=== PATIENT | female | born 1970 | race Caucasian/White ===

== ENCOUNTER → 2017-01-08 | Outpatient (CLI) | payer BC ==
--- NOTE | 2017-01-09 09:47 | Diagnostic Imaging Report ---
Bilateral screening mammogram 2D views with tomosynthesis The current study was also evaluated with a Computer Aided Detection (CAD) system. Indication: Screening. No current complaints stated on the questionnaire. COMPARISON: 10/29/2011. FINDINGS: The breasts are composed of heterogeneously dense parenchyma which may decrease mammographic sensitivity. There is an asymmetry along the medial aspect of the left breast. This appears to be related to fibroglandular tissues based on tomographic evaluation. This is the however new when compared to 2012 exam. The right breast demonstrate no definite change. IMPRESSION: Focal compression views and ultrasound evaluation for medial left breast asymmetry is recommended. BI-RADS 0. ACR BI-RADS Category 0: Incomplete. (Needs additional imaging evaluation). Result letter will be mailed to the patient. Note: At least 10% of breast cancer is not imaged by mammography. Dictated by: Dictated on workstation # [id number]
== END ==
LOC: RAD 13:05
PROVIDERS: ATTEND Family Medicine
DX: Z12.31 Encounter for screening mammogram for malignant neoplasm of breast (principal); N64.89 Other specified disorders of breast
CPT/HCPCS: 77067

== ENCOUNTER → 2017-08-19 | Outpatient (CLI) | payer BC ==
--- NOTE | 2017-08-19 14:40 | Diagnostic Imaging Report ---
INDICATION: Left breast density. Study is performed for six-month followup. The current study was also evaluated with a Computer Aided Detection (CAD) system. Correlation is made with prior mammogram from 01/08/2017 and 01/26/2017. 2-D and 3-D unilateral left diagnostic mammography was performed including CC, ML and mediolateral views. The previously noted elongated density along the medial aspect of the posterior left breast is barely visible on today's study and is consistent with fibroglandular tissue. No mass is identified. There are benign calcifications on the left. No malignant appearing microcalcifications are seen. Left axilla is unremarkable. IMPRESSION: BI-RADS category 2 Followup mammogram shows no suspicious abnormality. The previously noted density in the medial left breast is barely visible on today's study consistent with benign etiology. Patient should return in 6 months for bilateral screening mammography. ACR BI-RADS Category 2: Benign findings. Result letter will be mailed to the patient. Note: At least 10% of breast cancer is not imaged by mammography. Dictated by: Dictated on workstation # [id number]
== END ==
LOC: RAD 13:42
PROVIDERS: ATTEND Family Medicine
DX: R92.2 Inconclusive mammogram (principal)

== ENCOUNTER 2018-08-25 16:54 | Emergency (ER) | payer BC ==
[~2018-08-25] VITALS: Ht 165.1 cm; Wt 104.8 kg
[2018-08-25] MEDS ORDERED: LEVO75TA6 (17:12)
[2018-08-25] MEDS ORDERED: ASPIRIN 81 MG CHEW (CHILDREN'S ASA) PO ONE (17:15)
[2018-08-25 17:16] LABS: BASOPHILS # (AUTO) 0.1 10^3/uL (0.0-0.1); BASOPHILS % (AUTO) 1 % (0-10); EOSINOPHILS # (AUTO) 0.2 10^3/uL (0.0-0.3); EOSINOPHILS % (AUTO) 2 % (0-10); HEMATOCRIT 47 % (35-52); HEMOGLOBIN 14.9 G/DL (11.5-16.0); LYMPHOCYTES # (AUTO) 3.6 X 10^3 (1.0-4.0); LYMPHOCYTES % (AUTO) 33 % (12-44); MEAN CORPUSCULAR HEMOGLOBIN 31 PG (25-34); MEAN CORPUSCULAR HGB CONC 32 G/DL (32-36); MEAN CORPUSCULAR VOLUME 96 FL (80-99); MEAN PLATELET VOLUME 10.1 FL (7.4-10.4); MONOCYTES # (AUTO) 1.2 X 10^3 (0.0-1.0); MONOCYTES % (AUTO) 11 % (0-12); NEUTROPHILS # (AUTO) 5.8 X 10^3 (1.8-7.8); NEUTROPHILS % (AUTO) 54 % (42-75); PLATELET COUNT 295 10^3/uL (130-400); RED CELL DISTRIBUTION WIDTH 14.5 % (10.0-14.5); WHITE BLOOD COUNT 10.8 10^3/uL (4.3-11.0)
--- NOTE | 2018-08-25 17:19 | ED Chest Pain ---
General Chief Complaint: Chest Pain Stated Complaint: HYPERTENSION,CHEST PAIN Nursing Triage Note: AMB TO ROOM REPORTS SINCE AT 9AM TODAY HAD ONSET OF CHEST PAIN WHILE AT WORK DESCRIBES PAIN PRESSURE. Nursing Sepsis Screen: No Definite Risk Source: patient Exam Limitations: no limitations History of Present Illness Date Seen by Provider: Aug 25, 2018 Time Seen by Provider: 16:55 Initial Comments Patient presents to ER by private conveyance with chief complaint that she started having some chest pressure on the left side of her chest nonradiating about a 2 out of 10 starting at 845 this morning. She was at work at the [employer] and continue to work through it. It was not worse with exertion. She does not have a history of coronary artery disease, clots DVTs or familial history. She does not have GERD or indigestion. Nor does she have significant anxiety. She does not have a history of COPD or asthma. She does smoke about a half pack cigarettes she started again 3 months ago but she was off for 2 years prior to that. She does not have a history of high blood pressure high cholesterol but she does take medicines for hypothyroidism. She occasionally drinks alcohol and denies recreational drug use. She has not had any swelling in her hands or feet shortness of breath or cough. No fevers chills nausea vomiting or diarrhea. She feels plus in her face sometimes and has had sweats. She had her last period in February 2018 but before that she was very regular. She is on Black cohosh for the last couple weeks. Allergies and Home Medications Allergies Coded Allergies: No Known Drug Allergies (Unverified , 03/28/13) Patient Home Medication List Home Medication List Reviewed: Yes Review of Systems Review of Systems Constitutional: No chills, No diaphoresis EENTM: No Blurred Vision, No Double Vision Respiratory: Denies Cough, Denies Orthopnea Cardiovascular: Denies Chest Pain, Denies Edema Gastrointestinal: Denies Constipated, Denies Diarrhea, Denies Nausea Genitourinary: Denies Burning, Denies Discharge, Denies Drainage Past Ionnwjz-Ffusxd-Ojmgmb Hx Patient Social History Alcohol Use: Occasionally Uses Recreational Drug Use: No Smoking Status: Current Everyday Smoker Recent Foreign Travel: No Contact w/Someone Who Travel: No Recent Infectious Disease Expo: No Past Medical History Surgeries: No Respiratory: No Cardiac: No Neurological: No Reproductive Disorders: No Sexually Transmitted Disease: No Gastrointestinal: No Musculoskeletal: No Endocrine: No Cancer: No Psychosocial: No Integumentary: No Blood Disorders: No Physical Exam Vital Signs Vital Signs - First Documented 08/25/18 16:54 Temp 98.0 Pulse 82 Resp 18 B/P (MAP) 137/74 (95) Pulse Ox 97 Capillary Refill : Less Than 3 Seconds Height, Weight, BMI Height: 5'5.00" Weight: 231lbs. oz. 104.822528ey; BMI Method:Stated General Appearance: No Apparent Distress, WD/WN HEENT: PERRL/EOMI, Normal ENT Inspection, Pharynx Normal, Moist Mucous Membranes Neck: Full Range of Motion, Normal Inspection Respiratory: Chest Non Tender, Lungs Clear, Normal Breath Sounds, No Accessory Muscle Use, No Respiratory Distress Cardiovascular: Regular Rate, Rhythm, No Edema, Normal Peripheral Pulses Gastrointestinal: Normal Bowel Sounds, No Organomegaly, Non Tender, Soft Progress/Results/Core Measures Results/Orders Lab Results Laboratory Tests Test 08/25/18 16:58 Range/Units White Blood Count 10.8 4.3-11.0 10^3/uL Red Blood Count 4.85 4.35-5.85 10^6/uL Hemoglobin 14.9 11.5-16.0 G/DL Hematocrit 47 35-52 % Mean Corpuscular Volume 96 80-99 FL Mean Corpuscular Hemoglobin 31 25-34 PG Mean Corpuscular Hemoglobin Concent 32 32-36 G/DL Red Cell Distribution Width 14.5 10.0-14.5 % Platelet Count 295 130-400 10^3/uL Mean Platelet Volume 10.1 7.4-10.4 FL Neutrophils (%) (Auto) 54 42-75 % Lymphocytes (%) (Auto) 33 12-44 % Monocytes (%) (Auto) 11 0-12 % Eosinophils (%) (Auto) 2 0-10 % Basophils (%) (Auto) 1 0-10 % Neutrophils # (Auto) 5.8 1.8-7.8 X 10^3 Lymphocytes # (Auto) 3.6 1.0-4.0 X 10^3 Monocytes # (Auto) 1.2 H 0.0-1.0 X 10^3 Eosinophils # (Auto) 0.2 0.0-0.3 10^3/uL Basophils # (Auto) 0.1 0.0-0.1 10^3/uL Prothrombin Time 13.2 12.2-14.7 SEC INR Comment 1.0 0.8-1.4 Activated Partial Thromboplast Time 34 24-35 SEC Sodium Level 137 135-145 MMOL/L Potassium Level 3.8 3.6-5.0 MMOL/L Chloride Level 103 98-107 MMOL/L Carbon Dioxide Level 26 21-32 MMOL/L Anion Gap 8 5-14 MMOL/L Blood Urea Nitrogen 14 7-18 MG/DL Creatinine 0.84 0.60-1.30 MG/DL Estimat Glomerular Filtration Rate > 60 BUN/Creatinine Ratio 17 Glucose Level 97 70-105 MG/DL Calcium Level 9.8 8.5-10.1 MG/DL Corrected Calcium 8.5-10.1 MG/DL Magnesium Level 2.0 1.8-2.4 MG/DL Total Bilirubin 0.3 0.1-1.0 MG/DL Aspartate Amino Transf (AST/SGOT) 28 5-34 U/L Alanine Aminotransferase (ALT/SGPT) 31 0-55 U/L Alkaline Phosphatase 109 40-136 U/L Myoglobin 34.9 10.0-92.0 NG/ML Troponin I < 0.028 <0.028 NG/ML B-Type Natriuretic Peptide < 10.0 <100.0 PG/ML Total Protein 8.1 6.4-8.2 GM/DL Albumin 4.6 H 3.2-4.5 GM/DL Lipase 66 8-78 U/L My Orders Orders - SHONNA,MIGUEL J Ekg Tracing (08/25/18 16:56) Continuous Ekg Monitoring (08/25/18 16:56) Cbc With Automated Diff (08/25/18 17:08) Magnesium (08/25/18 17:08) Chest 1 View, Ap/Pa Only (08/25/18 17:08) Cardiac Profile 1 (08/25/18 17:08) Comprehensive Metabolic Panel (08/25/18 17:08) Myoglobin Serum (08/25/18 17:08) Protime With Inr (08/25/18 17:08) Partial Thromboplastin Time (08/25/18 17:08) O2 (08/25/18 17:08) Lipid Panel (08/26/18 06:00) Ed Iv/Invasive Line Start (08/25/18 17:08) Lipase (08/25/18 17:08) BNP (08/25/18 17:08) Aspirin Chewable Tablet (Baby Aspirin Ch (08/25/18 17:15) Medications Given in ED Current Medications Medications Dose Ordered Sig/Linnea Route Start Time Stop Time Status Last Admin Dose Admin Aspirin 324 mg ONCE ONCE PO 08/25/18 17:15 08/25/18 17:16 DC 08/25/18 17:15 324 MG Vital Signs/I&O 08/25/18 16:54 Temp 98.0 Pulse 82 Resp 18 B/P (MAP) 137/74 (95) Pulse Ox 97 Blood Pressure Mean: 95 Progress Progress Note : Time: 17:15 Progress Note Patient does not have a lot of risk factors for coronary disease. She has no risk factors for pulmonary embolism and her Wells pulmonary embolism score is low. We'll give her some aspirin but as the conversation ended she was without pressure or pain in her chest so no nitroglycerin at this time. Her blood pressures in the 130s when she presents. GI, anxiety? Pain started over 8 hours ago so single troponin should be positive by now. ED ACS score 7. Low risk by the EDACS Score. If the patient also has: (1) EKG without new ischemic changes and (2) negative initial and 2-hour troponins, then this patient is safe for discharge to early outpatient follow-up investigation (or proceed to earlier inpatient testing). If EKG with ischemic changes or positive troponin, they are not low risk and require normal risk stratification. Initial ECG Impression Date: Aug 25, 2018 Initial ECG Impression Time: 17:02 Initial ECG Rate: 75 Initial ECG Rhythm: Normal Sinus Initial ECG Intervals: Normal Initial ECG Impression: Normal Initial ECG Comparisson: No Previous ECG Available Comment No clinical significant ST elevation or depression. Diagnostic Imaging Diagonstic Imaging: Xray Plain Films/CT/US/NM/MRI: chest (1v) Comments NAME: DELMI JUDGE [employer] REC#: [id number] PHYSICIAN: MIGUEL KILPATRICK MD CC: WANG PERERA MD; MIGUEL KILPATRICK Page 1 of 1 RADIOLOGY REPORT [facility], [facility]. [place], [place] CC: WANG PERERA MD; MIGUEL KILPATRICK Page 1 of 1 RADIOLOGY REPORT NAME: DELMI JUDGE [employer] REC#: [id number] PT STATUS: REG ER : 1970 PHYSICIAN: MIGUEL KILPATRICK MD ADMIT DATE: 08/25/18/ER Signed Date of Exam: 08/25/18 CHEST 1 VIEW, AP/PA ONLY FINDINGS: The heart size, mediastinal configuration, and pulmonary vascularity are within normal limits. There is no pleural effusion, pneumothorax, or pneumonia. The osseous structures are unremarkable. IMPRESSION: No acute cardiopulmonary abnormality. Dictated by: Dictated on workstation # [id number] Dict: 08/25/18 173 Trans: 08/25/181743 Interpreted by: WANG PERERA MD Electronically signed by: WANG PERERA MD 08/25/181743 Reviewed: Reviewed by Me Departure Impression Primary Impression: Chest pain Qualified Codes: R07.9 - Chest pain, unspecified Disposition: 01 HOME, SELF-CARE Condition: Stable Departure-Patient Inst. Decision time for Depature: 18:02 Referrals: ABIDA TURK MD (PCP/Family) Primary Care Physician ANGELIA AMBRIZ MD Patient Instructions: Chest Pain That Is Not Caused by the Heart (DC) Add. Discharge Instructions: Follow-up with cardiology Dr. Ambriz by calling for an appointment tomorrow morning. If you have significant chest pain especially if it's worse with exercise or shortness of breath then please return to the nearest ER for further evaluation. All discharge instructions reviewed with patient and/or family. Voiced understanding. Work/School Note: Work Release Form Date Seen in the Emergency Department: Aug 25, 2018 Return to Work: Aug 26, 2018 Restrictions: No Restrictions MIGUEL KILPATRICK Aug 25, 2018 17:19
[2018-08-25 17:23] LABS: PROTHROMBIN TIME PATIENT 13.2 SEC (12.2-14.7)
[2018-08-25 17:28] LABS: ALANINE AMINOTRANSFERASE 31 U/L (0-55); ALBUMIN 4.6 GM/DL (3.2-4.5); ALKALINE PHOSPHATASE 109 U/L (40-136); BILIRUBIN,TOTAL 0.3 MG/DL (0.1-1.0); BUN/CREATININE RATIO 17; CALCIUM 9.8 MG/DL (8.5-10.1); CARBON DIOXIDE 26 MMOL/L (21-32); CHLORIDE 103 MMOL/L (98-107); CREATININE SERUM 0.84 MG/DL (0.60-1.30); GFR ESTIMATED > 60; GLUCOSE 97 MG/DL (70-105); LIPASE 66 U/L (8-78); POTASSIUM 3.8 MMOL/L (3.6-5.0); SODIUM 137 MMOL/L (135-145); TOTAL PROTEIN 8.1 GM/DL (6.4-8.2)
--- NOTE | 2018-08-25 17:42 | Diagnostic Imaging Report ---
FINDINGS: The heart size, mediastinal configuration, and pulmonary vascularity are within normal limits. There is no pleural effusion, pneumothorax, or pneumonia. The osseous structures are unremarkable. IMPRESSION: No acute cardiopulmonary abnormality. Dictated by: Dictated on workstation # [id number]
--- OUTSIDE RECORDS SUMMARY | 2018-08-25 17:54 | XMS REPORT ---
Author Author ABIDA TURK Organization [facility] Address [address] [place] [address] Care Team Providers Care Fueler Name Role Phone ABIDA TURK Unavailable PROBLEMS Type Condition ICD9-CM Code [id number] Code Onset Dates Condition Status SNOMED Code Problem Other obesity due to excess calories E66.09 Active 26491278876161 Problem Body mass index (BMI) of 40.0-44.9 in adult Z68.41 Active 212198674 Problem Perimenopausal vasomotor symptoms N95.1 Active 967873073 Problem Right thyroid nodule E04.1 Active 682882219 Problem Breast asymmetry N64.89 Active 788005382 Problem Acquired hypothyroidism E03.9 Active 464056545 Problem Abnormal mammogram R92.8 Active 120348019 Problem Perimenopause N95.1 Active 483248903 ALLERGIES No Information ENCOUNTERS Encounter Location Date Diagnosis [facility] [id number] [place] [phone] Jun, [facility] [id number] [place] [address] Jun, Normal pelvic exam Z01.419 ; Perimenopausal vasomotor symptoms N95.1 and Morbid obesity E66.01 [facility] [id number] [place] [address] May, Right thyroid nodule E04.1 [facility] [id number] [place] [phone] May, [facility] [id number] [place] [address] May, Right thyroid nodule E04.1 [facility] [id number] [place] [phone] Apr, [address] [place] [address] 14 Apr, 2018 Acquired hypothyroidism E03.9 [facility] [address], [place] [address] Apr, Acquired hypothyroidism E03.9 [facility] [address] [place] [address] Apr, [facility] [id number] [place] [address] Mar, Acquired hypothyroidism E03.9 ; Perimenopause N95.1 ; Body mass index (BMI) of 40.0-44.9 in adult Z68.41 ; Other obesity due to excess calories E66.09 and Sprain of right ankle, unspecified ligament, initial encounter S93.401A [facility] [address], [place] [address] Feb, [facility] [address], [place] [address] Jan, Acute right ankle pain M25.571 and BMI 40.0-44.9, adult Z68.41 [facility] [address], [place] [address] Jan, Acquired hypothyroidism E03.9 ; Body mass index (BMI) of 40.0-44.9 in adult Z68.41 ; Perimenopause N95.1 and BMI 40.0-44.9, adult Z68.41 [facility] [address], [place] [address] Sep, [facility] [address], [place] [address] Sep, [facility] [address], [place] [address] July, [facility] [address] [place] [address] July, Abnormal mammogram R92.8 [facility] [id number] [place] [address] Jun, Dependent edema R60.9 and Acquired hypothyroidism E03.9 [facility] [id number] [place] [address] May, Elevated TSH R94.6 [place] [address] [address] May, Elevated TSH R94.6 [facility] [id number] [place] [address] Apr, [facility] [id number] [place] [address] Mar, Elevated TSH R94.6 [place] [id number] [place] [address] Mar, Elevated TSH R94.6 [facility] [id number] [place] [address] Mar, Elevated TSH R94.6 [facility] [id number] [place] [address] Jan, [facility] [id number] [place] [address] Dec, Elevated TSH R94.6 [place] [id number] [place] [address] Dec, Breast asymmetry N64.89 [facility] [id number] [place] [address] Dec, Breast asymmetry N64.89 [place] [id number] [place] [address] Dec, Other obesity due to excess calories E66.09 ; Body mass index (BMI) of 40.0-44.9 in adult Z68.41 ; Elevated TSH R94.6 and Screening for breast cancer Z12.31 [facility] [address] [facility] [id number] [address] Dec, [facility] [address], [place] [address] July, Sprain of left ankle, unspecified ligament, subsequent encounter S93.402D [facility] [id number] [address] July, Sprain of left ankle, unspecified ligament, subsequent encounter S93.402D [facility] [address] [facility] [id number] [address] July, Left ankle injury, initial encounter S99.912A IMMUNIZATIONS No Known Immunizations SOCIAL HISTORY Never Assessed REASON FOR VISIT PLAN OF CARE VITAL SIGNS MEDICATIONS Unknown Medications RESULTS No Results PROCEDURES No Known procedures INSTRUCTIONS MEDICATIONS ADMINISTERED No Known Medications MEDICAL (GENERAL) HISTORY Type Description Date Medical History hypothyroidism Surgical History No Surgical history information Hospitalization History childbirth only
--- OUTSIDE RECORDS SUMMARY | 2018-08-25 17:54 | XMS REPORT ---
Author Author ABIDA TURK Organization [facility] Address [address] [place] [address] Care Team Providers Care Lathe Mechanic Name Role Phone ABIDA TURK Unavailable PROBLEMS Type Condition ICD9-CM Code UQE88-PS Code Onset Dates Condition Status SNOMED Code Problem Abnormal mammogram R92.8 Active 871726354 Problem Acquired hypothyroidism E03.9 Active 318491193 Problem Other obesity due to excess calories E66.09 Active 41303455881485 Problem Breast asymmetry N64.89 Active 480147898 Problem Body mass index (BMI) of 40.0-44.9 in adult Z68.41 Active 716777256 ALLERGIES No Information ENCOUNTERS Encounter Location Date Diagnosis [place] [id number] [place] [address] Sep, [facility] [address] [address] Sep, [place] [address] [address] July, [place] [id number] [place] [address] July, Abnormal mammogram R92.8 [facility] [id number] [place] [address] Jun, Dependent edema R60.9 and Acquired hypothyroidism E03.9 [facility] [address] [address] May, Elevated TSH R94.6 [place] [id number] [place] [address] 08 May, 2017 Elevated TSH R94.6 [place] [address] [place] [address] Apr, [facility] [address] [address] Mar, Elevated TSH R94.6 [facility] [address] [address] Mar, Elevated TSH R94.6 [facility] [id number] [place] [address] Mar, Elevated TSH R94.6 [facility] [id number] [place] [address] Jan, [facility] [id number] [place] [address] Dec, Elevated TSH R94.6 [place] [id number] [place] [address] Dec, Breast asymmetry N64.89 [place] [address] [place] [address] Dec, Breast asymmetry N64.89 [place] [id number] [place] [address] Dec, Other obesity due to excess calories E66.09 ; Body mass index (BMI) of 40.0-44.9 in adult Z68.41 ; Elevated TSH R94.6 and Screening for breast cancer Z12.31 [facility] [address] [address] Dec, [facility] [address] [address] July, Sprain of left ankle, unspecified ligament, subsequent encounter S93.402D [facility] [id number] [address] July, Sprain of left ankle, unspecified ligament, subsequent encounter S93.402D [facility] [address] [address] July, Left ankle injury, initial encounter S99.912A IMMUNIZATIONS No Known Immunizations SOCIAL HISTORY Never Assessed REASON FOR VISIT BP CHECK-AHarrymanRN PLAN OF CARE VITAL SIGNS Height 65 in 2017-10-14 Blood pressure systolic 124 mmHg 2017-10-14 Blood pressure diastolic 80 mmHg 2017-10-14 MEDICATIONS Unknown Medications RESULTS No Results PROCEDURES No Known procedures INSTRUCTIONS MEDICATIONS ADMINISTERED No Known Medications MEDICAL (GENERAL) HISTORY Type Description Date Hospitalization History childbirth only
--- OUTSIDE RECORDS SUMMARY | 2018-08-25 17:54 | XMS REPORT ---
Author Author ABIDA TURK Organization [facility] Address [address] [place] [address] Care Team Providers Care Software Qa System Specialist Name Role Phone ABIDA TURK Unavailable PROBLEMS Type Condition ICD9-CM Code [id number] Code Onset Dates Condition Status SNOMED Code Problem Other obesity due to excess calories E66.09 Active 97872601855773 Problem Body mass index (BMI) of 40.0-44.9 in adult Z68.41 Active 173288742 Problem Perimenopausal vasomotor symptoms N95.1 Active 443226434 Problem Right thyroid nodule E04.1 Active 878062891 Problem Breast asymmetry N64.89 Active 751618190 Problem Acquired hypothyroidism E03.9 Active 200625005 Problem Abnormal mammogram R92.8 Active 309305448 Problem Perimenopause N95.1 Active 332499449 ALLERGIES No Information ENCOUNTERS Encounter Location Date Diagnosis [facility] [id number] [place] [address] Jun, Normal pelvic exam Z01.419 ; Perimenopausal vasomotor symptoms N95.1 and Morbid obesity E66.01 [facility] [address] [place] [address] May, Right thyroid nodule E04.1 [facility] [address] [place] [address] May, [facility] [id number] [place] [address] May, Right thyroid nodule E04.1 [facility] [address] [place] [address] Apr, [address] [address] Apr, Acquired hypothyroidism E03.9 [facility] [address] [place] [address] Apr, Acquired hypothyroidism E03.9 [facility] [address] [place] [address] 08 Apr, 2018 [facility] [id number] [place] [address] Mar, Acquired hypothyroidism E03.9 ; Perimenopause N95.1 ; Body mass index (BMI) of 40.0-44.9 in adult Z68.41 ; Other obesity due to excess calories E66.09 and Sprain of right ankle, unspecified ligament, initial encounter S93.401A [facility] [id number] [place] [address] Feb, [facility] [id number] [place] [address] Jan, Acute right ankle pain M25.571 and BMI 40.0-44.9, adult Z68.41 [facility] [id number] [place] [address] Jan, Acquired hypothyroidism E03.9 ; Body mass index (BMI) of 40.0-44.9 in adult Z68.41 ; Perimenopause N95.1 and BMI 40.0-44.9, adult Z68.41 [facility] [address] [place] [address] Sep, [facility] [id number] [place] [address] Sep, [facility] [id number] [place] [address] July, [facility] [id number] [place] [address] July, Abnormal mammogram R92.8 [place] [id number] [place] [address] Jun, Dependent edema R60.9 and Acquired hypothyroidism E03.9 [facility] [address] [address] May, Elevated TSH R94.6 [facility] [id number] [place] [address] May, Elevated TSH R94.6 [facility] [address] [address] Apr, [facility] [address] [address] Mar, Elevated TSH R94.6 [facility] [address] [address] Mar, Elevated TSH R94.6 [facility] [address] [address] Mar, Elevated TSH R94.6 [facility] [id number] [place] [address] Jan, [facility] [address] [address] Dec, Elevated TSH R94.6 [facility] [id number] [place] [address] Dec, Breast asymmetry N64.89 [facility] [id number] [place] [address] Dec, Breast asymmetry N64.89 [facility] [id number] [place] [address] Dec, Other obesity due to excess calories E66.09 ; Body mass index (BMI) of 40.0-44.9 in adult Z68.41 ; Elevated TSH R94.6 and Screening for breast cancer Z12.31 [facility] [id number] [place] [address] Dec, [facility] [address] [facility] [id number] [place] [address] July, Sprain of left ankle, unspecified ligament, subsequent encounter S93.402D [facility] [address] [facility] [id number] [address] July, Sprain of left ankle, unspecified ligament, subsequent encounter S93.402D [facility] [address] [facility] [id number], [place] [address] July, Left ankle injury, initial encounter S99.912A IMMUNIZATIONS No Known Immunizations SOCIAL HISTORY Never Assessed REASON FOR VISIT Ultrasound Biopsy Order PLAN OF CARE VITAL SIGNS MEDICATIONS Unknown Medications RESULTS No Results PROCEDURES No Known procedures INSTRUCTIONS MEDICATIONS ADMINISTERED No Known Medications MEDICAL (GENERAL) HISTORY Type Description Date Medical History hypothyroidism Surgical History No Surgical history information Hospitalization History childbirth only
--- OUTSIDE RECORDS SUMMARY | 2018-08-25 17:54 | XMS REPORT ---
Author Author ABIDA TURK Organization [facility] Address [address] [place] [address] Care Team Providers Care Site Safety Coordinator Name Role Phone ABIDA TURK Unavailable PROBLEMS Type Condition ICD9-CM Code QOW35-HT Code Onset Dates Condition Status SNOMED Code Problem Perimenopause N95.1 Active 816060601 Problem Abnormal mammogram R92.8 Active 012946997 Problem Body mass index (BMI) of 40.0-44.9 in adult Z68.41 Active 198617270 Problem Other obesity due to excess calories E66.09 Active 15533261461862 Problem Acquired hypothyroidism E03.9 Active 690458450 Problem Breast asymmetry N64.89 Active 100023727 ALLERGIES No Known Allergies ENCOUNTERS Encounter Location Date Diagnosis [facility] [id number] [place] [address] Jan, Acquired hypothyroidism E03.9 ; Body mass index (BMI) of 40.0-44.9 in adult Z68.41 ; Perimenopause N95.1 and BMI 40.0-44.9, adult Z68.41 [facility] [address] [place] [address] Sep, [facility] [id number] [place] [address] Sep, [facility] [id number] [place] [address] July, [facility] [id number] [place] [address] July, Abnormal mammogram R92.8 [facility] [id number] [place] [address] Jun, Dependent edema R60.9 and Acquired hypothyroidism E03.9 [facility] [address] [address] May, Elevated TSH R94.6 [facility] [id number] [place] [address] May, Elevated TSH R94.6 [facility] [id number] [place] [address] Apr, [facility] [id number] [place] [address] Mar, Elevated TSH R94.6 [facility] [id number] [place] [address] Mar, Elevated TSH R94.6 [facility] [id number] [place] [address] Mar, Elevated TSH R94.6 [facility] [id number] [place] [address] Jan, [facility] [id number] [place] [address] Dec, Elevated TSH R94.6 [facility] [id number] [place] [address] Dec, Breast asymmetry N64.89 [facility] [id number] [place] [address] Dec, Breast asymmetry N64.89 [facility] [address] [place] [address] Dec, Other obesity due to excess calories E66.09 ; Body mass index (BMI) of 40.0-44.9 in adult Z68.41 ; Elevated TSH R94.6 and Screening for breast cancer Z12.31 [facility] [address] [place] [address] 06 Dec, 2016 [facility] [id number] [address] July, Sprain of left ankle, unspecified ligament, subsequent encounter S93.402D [facility] [address] [facility] [id number] [address] July, Sprain of left ankle, unspecified ligament, subsequent encounter S93.402D [facility] [address] [facility] [id number] [address] July, Left ankle injury, initial encounter S99.912A IMMUNIZATIONS No Known Immunizations SOCIAL HISTORY Never Assessed REASON FOR VISIT Thyroid fu -- bing taveras PLAN OF CARE Activity Details Follow Up 6 Weeks with Tonia zhao start Reason: Pending Test Ultrasound : Thyroid VITAL SIGNS Height 65 in 2018-01-21 Weight 256.0 lbs 2018-01-21 Temperature 97.6 degrees Fahrenheit 2018-01-21 BMI 42.60 kg/m2 2018-01-21 Blood pressure systolic 130 mmHg 2018-01-21 Blood pressure diastolic 82 mmHg 2018-01-21 MEDICATIONS Medication Instructions Dosage Frequency Start Date End Date Duration Status Multivitamin Adult Active Cymbalta 30 MG Orally Once a day 1 capsule daily for 14 days then two capsules daily 24h Jan, 30 day(s) Active Levothyroxine Sodium 75 mcg Orally Once a day 1 tablet on an empty stomach in the morning 24h 90 days Active RESULTS No Results PROCEDURES No Known procedures INSTRUCTIONS MEDICATIONS ADMINISTERED No Known Medications MEDICAL (GENERAL) HISTORY Type Description Date Surgical History No know Surgical history Hospitalization History childbirth only
--- OUTSIDE RECORDS SUMMARY | 2018-08-25 17:54 | XMS REPORT ---
Author Author ALEKS GARCIA [facility] Address [address] [place] [address] Care Team Providers Care Budget Accountant Name Role Phone ALEKS GARCIA Unavailable PROBLEMS Type Condition ICD9-CM Code ORE08-UN Code Onset Dates Condition Status SNOMED Code Problem Perimenopause N95.1 Active 523551536 Problem Abnormal mammogram R92.8 Active 322626076 Problem Body mass index (BMI) of 40.0-44.9 in adult Z68.41 Active 725512268 Problem Other obesity due to excess calories E66.09 Active 85663220513580 Problem Acquired hypothyroidism E03.9 Active 405963236 Problem Breast asymmetry N64.89 Active 838036026 ALLERGIES No Known Allergies ENCOUNTERS Encounter Location Date Diagnosis [facility] [address] [place] [address] Jan, Acute right ankle pain M25.571 and BMI 40.0-44.9, adult Z68.41 [facility] [id number] [place] [address] Jan, Acquired hypothyroidism E03.9 ; Body mass index (BMI) of 40.0-44.9 in adult Z68.41 ; Perimenopause N95.1 and BMI 40.0-44.9, adult Z68.41 [facility] [address] [place] [address] Sep, [facility] [id number] [place] [address] Sep, [facility] [id number] [place] [address] July, [facility] [id number] [place] [address] July, Abnormal mammogram R92.8 [place] [id number] [place] [address] Jun, Dependent edema R60.9 and Acquired hypothyroidism E03.9 [place] [id number] [place] [address] May, Elevated TSH R94.6 [place] [address] [address] May, Elevated TSH R94.6 [place] [id number] [place] [address] Apr, [place] [address] [address] Mar, Elevated TSH R94.6 [place] [address] [address] Mar, Elevated TSH R94.6 [place] [id number] [place] [address] Mar, Elevated TSH R94.6 [place] [id number] [place] [address] Jan, [place] [id number] [place] [address] Dec, Elevated TSH R94.6 [place] [id number] [place] [address] Dec, Breast asymmetry N64.89 [place] [id number] [place] [address] Dec, Breast asymmetry N64.89 [place] [id number] [place] [address] Dec, Other obesity due to excess calories E66.09 ; Body mass index (BMI) of 40.0-44.9 in adult Z68.41 ; Elevated TSH R94.6 and Screening for breast cancer Z12.31 [facility] [address] [facility] [id number] [address] Dec, [facility] [address] [facility] [id number], [place] [address] July, Sprain of left ankle, unspecified ligament, subsequent encounter S93.402D [facility] [address] [facility] [id number], [place] [address] July, Sprain of left ankle, unspecified ligament, subsequent encounter S93.402D [facility]ALK IN [facility] [address] [facility] [id number], [place] [address] July, Left ankle injury, initial encounter S99.912A IMMUNIZATIONS No Known Immunizations SOCIAL HISTORY Never Assessed REASON FOR VISIT ankle pain-right ankle pain and swelling after jumping off the back of a truck o n Thursday.--ZI Hernandez PLAN OF CARE Activity Details Follow Up Follow up with PCP if persists or worsens. Reason: VITAL SIGNS Height 65 in 2018-02-08 Weight 258 lbs 2018-02-08 Temperature 97.9 degrees Fahrenheit 2018-02-08 Heart Rate 80 bpm 2018-02-08 Respiratory Rate 20 2018-02-08 BMI 42.93 kg/m2 2018-02-08 Blood pressure systolic 120 mmHg 2018-02-08 Blood pressure diastolic 70 mmHg 2018-02-08 MEDICATIONS Medication Instructions Dosage Frequency Start Date End Date Duration Status Levothyroxine Sodium 75 mcg Orally Once a day 1 tablet on an empty stomach in the morning 24h 90 days Active Multivitamin Adult Active Cymbalta 30 MG Orally Once a day 1 capsule daily for 14 days then two capsules daily 24h Jan, 30 day(s) Active RESULTS Name Result Date Reference Range Xray : Ankle, Right 3 views (IN HOUSE) PROCEDURES Procedure Date Ordered Result Body Site X-RAY EXAM OF ANKLE Feb 08, 2018 INSTRUCTIONS MEDICATIONS ADMINISTERED No Known Medications MEDICAL (GENERAL) HISTORY Type Description Date Medical History hypothyroidism Surgical History No know Surgical history Hospitalization History childbirth only
--- OUTSIDE RECORDS SUMMARY | 2018-08-25 17:54 | XMS REPORT ---
Author Author ABIDA TURK Organization [facility] Address [address] [place] [address] Care Team Providers Care Bonderizer Operator Name Role Phone ABIDA TURK Unavailable PROBLEMS Type Condition ICD9-CM Code ASB63-GX Code Onset Dates Condition Status SNOMED Code Problem Abnormal mammogram R92.8 Active 124691678 Problem Acquired hypothyroidism E03.9 Active 886020350 Problem Other obesity due to excess calories E66.09 Active 41244371710230 Problem Breast asymmetry N64.89 Active 163986004 Problem Body mass index (BMI) of 40.0-44.9 in adult Z68.41 Active 226842170 ALLERGIES No Known Allergies ENCOUNTERS Encounter Location Date Diagnosis [place] [id number] [place] [address] Sep, [facility] [id number] [place] [address] Sep, [place] [id number] [place] [address] July, [place] [id number] [place] [address] July, Abnormal mammogram R92.8 [facility] [id number] [place] [address] Jun, Dependent edema R60.9 and Acquired hypothyroidism E03.9 [facility] [address] [address] May, Elevated TSH R94.6 [place] [id number] [place] [address] 08 May, 2017 Elevated TSH R94.6 [place] [address] [address] Apr, [facility] [address] [address] Mar, Elevated TSH R94.6 [facility] [id number] [address] Mar, Elevated TSH R94.6 [facility] [id number] [place] [address] Mar, Elevated TSH R94.6 [facility] [address] [place] [address] Jan, [place] [id number] [place] [address] Dec, Elevated TSH R94.6 [place] [id number] [place] [address] Dec, Breast asymmetry N64.89 [place] [address] [place] [address] Dec, Breast asymmetry N64.89 [place] [id number] [place] [address] Dec, Other obesity due to excess calories E66.09 ; Body mass index (BMI) of 40.0-44.9 in adult Z68.41 ; Elevated TSH R94.6 and Screening for breast cancer Z12.31 [place] [address] [address] Dec, [facility] [address] [address] July, Sprain of left ankle, unspecified ligament, subsequent encounter S93.402D [facility] [address] [address] July, Sprain of left ankle, unspecified ligament, subsequent encounter S93.402D [facility] [id number] [address] July, Left ankle injury, initial encounter S99.912A IMMUNIZATIONS No Known Immunizations SOCIAL HISTORY Never Assessed REASON FOR VISIT f/u--tcuppettRN PLAN OF CARE Activity Details Follow Up 6 Months with Tonia mcgee HypoThezekiel Reason: VITAL SIGNS Height 65 in 2017-07-09 Weight 257.0 lbs 2017-07-09 Temperature 97.9 degrees Fahrenheit 2017-07-09 Heart Rate 84 bpm 2017-07-09 Respiratory Rate 20 2017-07-09 BMI 42.76 kg/m2 2017-07-09 Blood pressure systolic 122 mmHg 2017-07-09 Blood pressure diastolic 80 mmHg 2017-07-09 MEDICATIONS Medication Instructions Dosage Frequency Start Date End Date Duration Status Levothyroxine Sodium 75 MCG Orally Once a day 1 tablet on an empty stomach in the morning 24h Jan, Active Multivitamin Adult Active RESULTS No Results PROCEDURES No Known procedures INSTRUCTIONS MEDICATIONS ADMINISTERED No Known Medications MEDICAL (GENERAL) HISTORY Type Description Date Hospitalization History childbirth only
--- OUTSIDE RECORDS SUMMARY | 2018-08-25 17:54 | XMS REPORT ---
Author Author ABIDA TURK Organization [facility] Address [address] [place] [address] Care Team Providers Care Chief Controller Center Name Role Phone ABIDA TURK Unavailable PROBLEMS Type Condition ICD9-CM Code ZQP74-KL Code Onset Dates Condition Status SNOMED Code Problem Abnormal mammogram R92.8 Active 622215127 Problem Acquired hypothyroidism E03.9 Active 303523296 Problem Other obesity due to excess calories E66.09 Active 66257210776924 Problem Breast asymmetry N64.89 Active 888121544 Problem Body mass index (BMI) of 40.0-44.9 in adult Z68.41 Active 522047682 ALLERGIES No Information ENCOUNTERS Encounter Location Date Diagnosis [place] [id number] [place] [address] Sep, [facility] [address] [address] Sep, [place] [address] [address] July, [place] [id number] [place] [address] July, Abnormal mammogram R92.8 [facility] [id number] [place] [address] Jun, Dependent edema R60.9 and Acquired hypothyroidism E03.9 [facility] [address] [address] May, Elevated TSH R94.6 [place] [id number] [place] [address] 08 May, 2017 Elevated TSH R94.6 [place] [address] [place] [address] Apr, [facility] [address] [address] Mar, Elevated TSH R94.6 [facility] [id number] [address] Mar, Elevated TSH R94.6 [facility] [id number] [place] [address] Mar, Elevated TSH R94.6 [facility] [id number] [place] [address] Jan, [facility] [id number] [place] [address] Dec, Elevated TSH R94.6 [place] [id number] [place] [address] Dec, Breast asymmetry N64.89 [place] [address] [place] [address] Dec, Breast asymmetry N64.89 [place] [address] [id number] [place] [phone] Dec, Other obesity due to excess calories E66.09 ; Body mass index (BMI) of 40.0-44.9 in adult Z68.41 ; Elevated TSH R94.6 and Screening for breast cancer Z12.31 [facility] [id number] [address] Dec, [facility] [id number] [address] July, Sprain of left ankle, unspecified ligament, subsequent [facility] S93.402[facility] [id number] [address] July, Sprain of left ankle, unspecified ligament, subsequent encounter S93.402D [facility] [id number] [address] July, Left ankle injury, initial encounter S99.912A IMMUNIZATIONS No Known Immunizations SOCIAL HISTORY Never Assessed REASON FOR VISIT Medication refill request PLAN OF CARE VITAL SIGNS MEDICATIONS Medication Instructions Dosage Frequency Start Date End Date Duration Status Levothyroxine Sodium 75 mcg Orally Once a day 1 tablet on an empty stomach in the morning 24h 90 days Active RESULTS No Results PROCEDURES No Known procedures INSTRUCTIONS MEDICATIONS ADMINISTERED No Known Medications MEDICAL (GENERAL) HISTORY Type Description Date Hospitalization History childbirth only
--- OUTSIDE RECORDS SUMMARY | 2018-08-25 17:54 | XMS REPORT ---
Author Author ABIDA TURK Organization [facility] Address [address] [place] [address] Care Team Providers Care Workers Compensation Adjuster Name Role Phone AIBDA TURK Unavailable PROBLEMS Type Condition ICD9-CM Code IPL20-HF Code Onset Dates Condition Status SNOMED Code Problem Abnormal mammogram R92.8 Active 189662127 Problem Acquired hypothyroidism E03.9 Active 276897922 Problem Other obesity due to excess calories E66.09 Active 34485764772709 Problem Breast asymmetry N64.89 Active 805887831 Problem Body mass index (BMI) of 40.0-44.9 in adult Z68.41 Active 446284587 ALLERGIES No Information ENCOUNTERS Encounter Location Date Diagnosis [place] [address] [place] [id number] [place] [address] Sep, [facility] [address] [address] Sep, [place] [address] [address] July, [place] [address] [id number] [place] [address] July, Abnormal mammogram R92.8 [facility] [id number] [place] [address] Jun, Dependent edema R60.9 and Acquired hypothyroidism E03.9 [facility] [address] [address] May, Elevated TSH R94.6 [place] [id number] [place] [address] 08 May, 2017 Elevated TSH R94.6 [place] [address] [place] [address] Apr, [facility] [address], [place] [address] Mar, Elevated TSH R94.6 [facility] [address], [place] [address] Mar, Elevated TSH R94.6 [facility] [id number] [place] [address] Mar, Elevated TSH R94.6 [facility] [id number] [place] [address] Jan, [facility] [id number] [place] [address] Dec, Elevated TSH R94.6 [place] [address] [id number] [place] [address] Dec, Breast asymmetry N64.89 [place] [address] [place] [address] Dec, Breast asymmetry N64.89 [place] [address] [id number] [place] [address] Dec, Other obesity due to excess calories E66.09 ; Body mass index (BMI) of 40.0-44.9 in adult Z68.41 ; Elevated TSH R94.6 and Screening for breast cancer Z12.31 [facility] [address], [place] [address] Dec, [facility] [address], [place] [address] July, Sprain of left ankle, unspecified ligament, subsequent encounter S93.402D [facility] [address] [place] [id number] [address] July, Sprain of left ankle, unspecified ligament, subsequent encounter S93.402D [facility] [address] [address] July, Left ankle injury, initial encounter S99.912A IMMUNIZATIONS No Known Immunizations SOCIAL HISTORY Never Assessed REASON FOR VISIT mammo order PLAN OF CARE VITAL SIGNS MEDICATIONS Unknown Medications RESULTS No Results PROCEDURES No Known procedures INSTRUCTIONS MEDICATIONS ADMINISTERED No Known Medications MEDICAL (GENERAL) HISTORY Type Description Date Hospitalization History childbirth only
--- OUTSIDE RECORDS SUMMARY | 2018-08-25 17:54 | XMS REPORT ---
Author Author ABIDA TURK Organization [facility] Address [address] [place] [address] Care Team Providers Care Printer Technician Name Role Phone ABIDA TURK Unavailable PROBLEMS Type Condition ICD9-CM Code VOX15-UQ Code Onset Dates Condition Status SNOMED Code Problem Abnormal mammogram R92.8 Active 188636705 Problem Acquired hypothyroidism E03.9 Active 327250020 Problem Other obesity due to excess calories E66.09 Active 00799759402345 Problem Breast asymmetry N64.89 Active 884231231 Problem Body mass index (BMI) of 40.0-44.9 in adult Z68.41 Active 584908659 ALLERGIES No Information ENCOUNTERS Encounter Location Date Diagnosis [place] [address] [place] [id number] [place] [address] Sep, [facility] [address] [address] Sep, [place] [address] [address] July, [place] [address] [place] [address] [id number] [place] [address] July, Abnormal mammogram R92.8 [facility] [id number] [place] [address] Jun, Dependent edema R60.9 and Acquired hypothyroidism E03.9 [facility] [address] [address] May, Elevated TSH R94.6 [place] [address] [place] [id number] [place] [address] 08 May, 2017 Elevated TSH R94.6 [place] [address] [place] [address] Apr, [facility] [address] [address] Mar, Elevated TSH R94.6 [facility] [address] [address] Mar, Elevated TSH R94.6 [facility] [address] [place] [id number] [place] [address] Mar, Elevated TSH R94.6 [facility] [address] [place] [address] [id number] [place] [address] Jan, [facility] [address] [place] [id number] [place] [address] Dec, Elevated TSH R94.6 [place] [address] [place] [address] [id number] [place] [address] Dec, Breast asymmetry N64.89 [place] [address] [place] [address] Dec, Breast asymmetry N64.89 [place] [address] [place] [address] [id number] [place] [address] Dec, Other obesity due to excess calories E66.09 ; Body mass index (BMI) of 40.0-44.9 in adult Z68.41 ; Elevated TSH R94.6 and Screening for breast cancer Z12.31 [facility] [address] [address] Dec, [facility] [address] [address] July, Sprain of left ankle, unspecified ligament, subsequent encounter S93.402D [facility] [address] [place] [address] [address] July, Sprain of left ankle, unspecified ligament, subsequent encounter S93.402D [facility] [address] [address] July, Left ankle injury, initial encounter S99.911K IMMUNIZATIONS No Known Immunizations SOCIAL HISTORY Never Assessed REASON FOR VISIT PLAN OF CARE VITAL SIGNS MEDICATIONS Unknown Medications RESULTS No Results PROCEDURES No Known procedures INSTRUCTIONS MEDICATIONS ADMINISTERED No Known Medications MEDICAL (GENERAL) HISTORY Type Description Date Hospitalization History childbirth only
--- OUTSIDE RECORDS SUMMARY | 2018-08-25 17:55 | XMS REPORT ---
Author Author ABIDA TURK Organization [facility] Address [address] [place] [address] Care Team Providers Care Possum Trapper Name Role Phone ABIDA TURK Unavailable PROBLEMS Type Condition ICD9-CM Code MOS82-OD Code Onset Dates Condition Status SNOMED Code Problem Abnormal mammogram R92.8 Active 714879546 Problem Acquired hypothyroidism E03.9 Active 561153959 Problem Other obesity due to excess calories E66.09 Active 24939835183291 Problem Breast asymmetry N64.89 Active 782913393 Problem Body mass index (BMI) of 40.0-44.9 in adult Z68.41 Active 784461650 ALLERGIES No Information ENCOUNTERS Encounter Location Date Diagnosis [place] [address] [address] July, [place] [address] [address] July, Abnormal mammogram R92.8 [place] [address] [address] Jun, Dependent edema R60.9 and Acquired hypothyroidism E03.9 [place] [address] [place] [id number] [place] [address] May, Elevated TSH R94.6 [facility] [id number] [place] [address] May, Elevated TSH R94.6 [place] [address] [address] Apr, [place] [address] [address] Mar, Elevated TSH R94.6 [place] [address], [place] [address] Mar, Elevated TSH R94.6 [place] [address] [place] [id number] [place] [address] Mar, Elevated TSH R94.6 [place] [address] [place] [address] [id number] [place] [address] Jan, [place] [address] [place] [id number] [place] [address] Dec, Elevated TSH R94.6 [place] [address] [place] [address] [id number] [place] [address] Dec, Breast asymmetry N64.89 [place] [address] [place] [id number] [place] [address] Dec, Breast asymmetry N64.89 [place] [address] [place] [address] [id number] [place] [address] Dec, Other obesity due to excess calories E66.09 ; Body mass index (BMI) of 40.0-44.9 in adult Z68.41 ; Elevated TSH R94.6 and Screening for breast cancer Z12.31 [place] [address] [place] [address] Dec, [place] [address] [place] [address] July, Sprain of left ankle, unspecified ligament, subsequent encounter S93.402D [facility] [address] [place] [address] July, Sprain of left ankle, unspecified ligament, subsequent encounter S93.402D [facility] [address] [place] [address] July, Left ankle injury, initial encounter S99.912A IMMUNIZATIONS No Known Immunizations SOCIAL HISTORY Never Assessed REASON FOR VISIT Lab results PLAN OF CARE VITAL SIGNS MEDICATIONS Medication Instructions Dosage Frequency Start Date End Date Duration Status Levothyroxine Sodium 75 MCG Orally Once a day 1 tablet on an empty stomach in the morning 24h Jan, Active RESULTS No Results PROCEDURES No Known procedures INSTRUCTIONS MEDICATIONS ADMINISTERED No Known Medications MEDICAL (GENERAL) HISTORY Type Description Date Hospitalization History childbirth only
--- OUTSIDE RECORDS SUMMARY | 2018-08-25 17:55 | XMS REPORT ---
Author Author ABIDA TURK Organization [facility] Address [address] [place] [address] Care Team Providers Care Crm Solution Architect Name Role Phone ABIDA TURK Unavailable PROBLEMS Type Condition ICD9-CM Code HUD65-OQ Code Onset Dates Condition Status SNOMED Code Problem Abnormal mammogram R92.8 Active 003867636 Problem Acquired hypothyroidism E03.9 Active 481932092 Problem Other obesity due to excess calories E66.09 Active 71298312917858 Problem Breast asymmetry N64.89 Active 118845860 Problem Body mass index (BMI) of 40.0-44.9 in adult Z68.41 Active 464176938 ALLERGIES No Information ENCOUNTERS Encounter Location Date Diagnosis [place] [address] [address] July, [place] [address] [address] July, Abnormal mammogram R92.8 [place] [address] [address] Jun, Dependent edema R60.9 and Acquired hypothyroidism E03.9 [place] [address] [place] [id number] [place] [address] May, Elevated TSH R94.6 [facility] [id number] [place] [address] May, Elevated TSH R94.6 [place] [address] [address] Apr, [place] [address] [address] Mar, Elevated TSH R94.6 [place] [address], [place] [address] Mar, Elevated TSH R94.6 [place] [address] [id number] [place] [address] Mar, Elevated TSH R94.6 [place] [address] [place] [address] [id number] [place] [address] Jan, [place] [address] [place] [address] [id number] [place] [address] Dec, Elevated TSH R94.6 [place] [address] [id number] [place] [address] Dec, Breast asymmetry N64.89 [place] [address] [address] [id number] [place] [address] Dec, Breast asymmetry N64.89 [place] [address] [place] [address] [id number] [place] [address] Dec, Other obesity due to excess calories E66.09 ; Body mass index (BMI) of 40.0-44.9 in adult Z68.41 ; Elevated TSH R94.6 and Screening for breast cancer Z12.31 [place] [address] [place] [address] Dec, [place] [address] [place] [address] [id number] [place] [address] July, Sprain of left ankle, unspecified ligament, subsequent encounter S93.402D [facility] [address] [place] [address] July, Sprain of left ankle, unspecified ligament, subsequent encounter S93.402D [facility] [address] [place] [address] July, Left ankle injury, initial encounter S99.912A IMMUNIZATIONS No Known Immunizations SOCIAL HISTORY Never Assessed REASON FOR VISIT Lab (walk-in) PLAN OF CARE VITAL SIGNS MEDICATIONS Unknown Medications RESULTS No Results PROCEDURES Procedure Date Ordered Result Body Site ASSAY THYROID STIM HORMONE Mar 24, 2017 VENIPUNCT, ROUTINE* Mar 24, 2017 INSTRUCTIONS MEDICATIONS ADMINISTERED No Known Medications MEDICAL (GENERAL) HISTORY Type Description Date Hospitalization History childbirth only
--- OUTSIDE RECORDS SUMMARY | 2018-08-25 17:55 | XMS REPORT ---
Author Author ABIDA TURK Organization [facility] Address [address] [place] [address] Care Team Providers Care Saddle Cutter Name Role Phone ABIDA TURK Unavailable PROBLEMS Type Condition ICD9-CM Code XYS20-CR Code Onset Dates Condition Status SNOMED Code Problem Abnormal mammogram R92.8 Active 847876429 Problem Acquired hypothyroidism E03.9 Active 362942665 Problem Other obesity due to excess calories E66.09 Active 97831511567512 Problem Breast asymmetry N64.89 Active 959174494 Problem Body mass index (BMI) of 40.0-44.9 in adult Z68.41 Active 577656328 ALLERGIES No Information ENCOUNTERS Encounter Location Date Diagnosis [place] [address] [address] July, [place] [address] [address] July, Abnormal mammogram R92.8 [place] [address] [address] Jun, Dependent edema R60.9 and Acquired hypothyroidism E03.9 [place] [address] [place] [address] [id number] [place] [address] May, Elevated TSH R94.6 [facility] [id number] [place] [address] May, Elevated TSH R94.6 [place] [address] [address] Apr, [place] [address] [address] Mar, Elevated TSH R94.6 [place] [address] [address] Mar, Elevated TSH R94.6 [place] [address] [id number] [place] [address] Mar, Elevated TSH R94.6 [place] [address] [id number] [place] [address] Jan, [place] [address] [id number] [place] [address] Dec, Elevated TSH R94.6 [place] [address] [id number] [place] [address] Dec, Breast asymmetry N64.89 [place] [address] [id number] [place] [address] Dec, Breast asymmetry N64.89 [place] [address] [id number] [place] [address] Dec, Other obesity due to excess calories E66.09 ; Body mass index (BMI) of 40.0-44.9 in adult Z68.41 ; Elevated TSH R94.6 and Screening for breast cancer Z12.31 [place] [address] [place] [address] Dec, [place] [address] [place] [address] July, Sprain of left ankle, unspecified ligament, subsequent encounter S93.402D [facility] [address] [place] [address] July, Sprain of left ankle, unspecified ligament, subsequent encounter S93.402D [facility] [address] [place] [address] July, Left ankle injury, initial encounter S99.912A IMMUNIZATIONS No Known Immunizations SOCIAL HISTORY Never Assessed REASON FOR VISIT Refill PLAN OF CARE VITAL SIGNS MEDICATIONS Medication [...]
--- OUTSIDE RECORDS SUMMARY | 2018-08-25 17:55 | XMS REPORT | Continuity of Care Document ---
Author Organization Unknown Address Unknown Allergies Active Description Code Type Severity Reaction Onset Reported/Identified Relationship to Patient Clinical Status Yes No Known Drug Allergies [id number] Drug Allergy Unknown N/A 03/28/2013 Medications There is no data. Problems Date Dx Coded Attending Type Code Diagnosis Diagnosed By 03/28/2013 SARAH BETH SUE MD, Ot 372.30 CONJUNCTIVITIS NOS 03/28/2013 SARAH BETH SUE MD, Ot 379.91 PAIN IN OR AROUND EYE 01/09/2017 ABIDA TURK MD Ot N64.89 OTHER SPECIFIED DISORDERS OF BREAST 01/09/2017 ABIDA TURK MD Ot Z12.31 ENCNTR SCREEN MAMMOGRAM FOR MALIGNANT NE 01/21/2017 ABIDA TURK MD Ot N64.89 OTHER SPECIFIED DISORDERS OF BREAST 01/21/2017 ABIDA TURK MD Ot Z12.31 ENCNTR SCREEN MAMMOGRAM FOR MALIGNANT NE 02/13/2017 ABIDA TURK MD Ot N64.89 OTHER SPECIFIED DISORDERS OF BREAST 08/20/2017 ABIDA TURK MD Ot R92.2 INCONCLUSIVE MAMMOGRAM 08/20/2017 ABIDA TURK MD Ot R92.2 INCONCLUSIVE MAMMOGRAM 09/03/2017 ABIDA TURK MD Ot R92.2 INCONCLUSIVE MAMMOGRAM Procedures There is no data. Results Test Result Range TSH w/ FREE T4 - 01/19/17 16:36 TSH 11.77 mIU/L NRG T4, FREE 0.9 ng/dL 0.8-1.8 TSH - 03/24/17 16:50 TSH 7.38 mIU/L NRG TSH - 05/28/17 16:50 TSH 3.33 mIU/L NRG SUREPATH PAP AND HPV mRNA E6/E7 - 06/29/18 16:10 CLINICAL INFORMATION: NRG LMP: NRG PREV. PAP: NRG PREV. BX: NRG SOURCE: Cervix NRG STATEMENT OF ADEQUACY: NRG INTERPRETATION/RESULT: NRG MANUSCRIPT EDITOR: JORDIN HPV mRNA E6/E7, SUREPATH VIAL Not Detected NOT DETECTED INFECTION: NRG COMMENT NRG Complete blood count (CBC) with automated white blood cell (WBC) differential - 08/25/18 16:58 Blood leukocytes automated count (number/volume) 10.8 10*3/uL 4.3-11.0 Blood erythrocytes automated count (number/volume) 4.85 10*6/uL 4.35-5.85 Venous blood hemoglobin measurement (mass/volume) 14.9 g/dL 11.5-16.0 Blood hematocrit (volume fraction) 47 % 35-52 Automated erythrocyte mean corpuscular volume 96 [foz_us] 80-99 Automated erythrocyte mean corpuscular hemoglobin (mass per erythrocyte) 31 pg 25-34 Automated erythrocyte mean corpuscular hemoglobin concentration measurement (mass/volume) 32 g/dL 32-36 Automated erythrocyte distribution width ratio 14.5 % 10.0- 14.5 Automated blood platelet count (count/volume) 295 10*3/uL 130-400 Automated blood platelet mean volume measurement 10.1 [foz_us] 7.4-10.4 Automated blood neutrophils/100 leukocytes 54 % 42-75 Automated blood lymphocytes/100 leukocytes 33 % 12-44 Blood monocytes/100 leukocytes 11 % 0-12 Automated blood eosinophils/100 leukocytes 2 % 0-10 Automated blood basophils/100 leukocytes 1 % 0-10 Blood neutrophils automated count (number/volume) 5.8 10*3 1.8-7.8 Blood lymphocytes automated count (number/volume) 3.6 10*3 1.0-4.0 Blood monocytes automated count (number/volume) 1.2 10*3 0.0- 1.0 Automated eosinophil count 0.2 10*3/uL 0.0-0.3 Automated blood basophil count (count/volume) 0.1 10*3/uL 0.0-0.1 PT panel in platelet poor plasma by coagulation assay - 08/25/18 16:58 Prothrombin time (PT) in platelet poor plasma by coagulation assay 13.2 s 12.2-14.7 INR in platelet poor plasma or blood by coagulation assay 1.0 0.8-1.4 Activated partial thromboplastin time (aPTT) in platelet poor plasma bycoagulation assay - 08/25/18 16:58 Activated partial thromboplastin time (aPTT) in platelet poor plasma bycoagulation assay 34 s 24-35 Comprehensive metabolic panel - 08/25/18 16:58 Serum or plasma sodium measurement (moles/volume) 137 mmol/L 135-145 Serum or plasma potassium measurement (moles/volume) 3.8 mmol/L 3.6-5.0 Serum or plasma chloride measurement (moles/volume) 103 mmol/L 98-107 Carbon dioxide 26 mmol/L 21-32 Serum or plasma anion gap determination (moles/volume) 8 mmol/L 5-14 Serum or plasma urea nitrogen measurement (mass/volume) 14 mg/dL 7-18 Serum or plasma creatinine measurement (mass/volume) 0.84 mg/dL 0.60-1.30 Serum or plasma urea nitrogen/creatinine mass ratio 17 NRG Serum or plasma creatinine measurement with calculation of estimated glomerular filtration rate > NRG Serum or plasma glucose measurement (mass/volume) 97 mg/dL 70-105 Serum or plasma calcium measurement (mass/volume) 9.8 mg/dL 8.5-10.1 Serum or plasma total bilirubin measurement (mass/volume) 0.3 mg/dL 0.1-1.0 Serum or plasma alkaline phosphatase measurement (enzymatic activity/volume) 109 U/L 40-136 Serum or plasma aspartate aminotransferase measurement (enzymatic activity/volume) 28 U/L 5-34 Serum or plasma alanine aminotransferase measurement (enzymatic activity/volume) 31 U/L 0-55 Serum or plasma protein measurement (mass/volume) 8.1 g/dL 6.4-8.2 Serum or plasma albumin measurement (mass/volume) 4.6 g/dL 3.2-4.5 Magnesium - 08/25/18 16:58 Magnesium 2.0 mg/dL 1.8-2.4 Serum or plasma troponin i.cardiac measurement (mass/volume) - 08/25/18 16:58 Serum or plasma troponin i.cardiac measurement (mass/volume) < ng/mL <0.028 Myoglobin, serum - 08/25/18 16:58 Myoglobin, serum 34.9 ng/mL 10.0-92.0 Lipase - 08/25/18 16:58 Lipase 66 U/L 8-78 Serum or plasma lithium measurement (moles/volume) - 08/25/18 16:58 BNP level < pg/mL <100.0 Encounters ACCT No. Visit Date/Time Discharge Status Pt. Type Provider Facility Loc./Unit Complaint [id number] 06/29/2018 15:20:00 06/29/2018 23:59:59 CLS Outpatient ABIDA TURK [facility] [id number] 06/29/2018 15:20:00 Document Registration [id number] 05/28/2017 16:40:00 Document Registration [id number] 03/24/2017 16:40:00 Document Registration [id number] 01/19/2017 16:20:00 Document Registration [id number] 01/22/2018 13:59:00 01/22/2018 23:59:59 CLS Preadmit ABIDA TURK MD [facility] ACQUIRED HYPOTHYROIDISM [id number] 08/19/2017 13:42:00 08/19/2017 23:59:59 CLS Outpatient ABIDA TURK MD [facility] RAD R922 [id number] 01/26/2017 13:51:00 01/26/2017 23:59:59 CLS Outpatient ABIDA TURK MD [facility] BREAST ASYMMETRY [id number] 01/08/2017 13:05:00 01/08/2017 23:59:59 CLS Outpatient ABIDA TURK MD [facility] RAD Z12.31 SCREENING [id number] 03/28/2013 21:49:00 03/28/2013 22:56:00 DIS Emergency SARAH BETH SUE MD [facility] ER R EYE IRRITATION [id number] 08/25/2018 16:56:00 ACT Emergency MIGUEL KILPATRICK MD [facility] ER HYPERTENSION,CHEST PAIN [id number] 01/07/2017 09:20:00 Document Registration
--- OUTSIDE RECORDS SUMMARY | 2018-08-25 17:55 | XMS REPORT ---
Author Author ABIDA TURK Organization [facility] Address [address] [place] [address] Care Team Providers Care Electrical Systems Engineer Name Role Phone ABIDA TURK Unavailable PROBLEMS Type Condition ICD9-CM Code RCB71-GX Code Onset Dates Condition Status SNOMED Code Problem Abnormal mammogram R92.8 Active 977228214 Problem Breast asymmetry N64.89 Active 275700057 Problem Other obesity due to excess calories E66.09 Active 52736385809822 Problem Body mass index (BMI) of 40.0-44.9 in adult Z68.41 Active 234139778 ALLERGIES No Information ENCOUNTERS Encounter Location Date Diagnosis [facility] [id number] [place] [address] July, Abnormal mammogram R92.8 [facility] [id number] [place] [address] Jun, [facility] [id number] [place] [address] May, Elevated TSH R94.6 [facility] [id number] [place] [address] May, Elevated TSH R94.6 [facility] [id number] [place] [address] Apr, [facility] [id number] [place] [address] Mar, Elevated TSH R94.6 [facility] [id number] [place] [address] Mar, Elevated TSH R94.6 [facility] [id number] [place] [address] Mar, Elevated TSH R94.6 [place] [address], [place] [address] Jan, [place] [address] [place] [address] Dec, Elevated TSH R94.6 [place] [id number] [place] [address] Dec, Breast asymmetry N64.89 [place] [id number] [place] [address] Dec, Breast asymmetry N64.89 [place] [id number] [place] [address] Dec, Other obesity due to excess calories E66.09 ; Body mass index (BMI) of 40.0-44.9 in adult Z68.41 ; Elevated TSH R94.6 and Screening for breast cancer Z12.31 [place] [id number] [place] [address] Dec, [place] [id number] [place] [address] July, Sprain of left ankle, unspecified ligament, subsequent encounter S93.402D [facility] [address] [place] [address] [address] July, Sprain of left ankle, unspecified ligament, subsequent encounter S93.402D [facility] [address], [place] [address] July, Left ankle injury, initial encounter S99.912A IMMUNIZATIONS No Known Immunizations SOCIAL HISTORY Never Assessed REASON FOR VISIT Lab (walk-in)--[facility] PLAN OF CARE VITAL SIGNS MEDICATIONS Unknown Medications RESULTS No Results PROCEDURES Procedure Date Ordered Result Body Site ASSAY THYROID STIM HORMONE Jan 19, 2017 ASSAY OF FREE THYROXINE Jan 19, 2017 VENIPUNCT, ROUTINE* Jan 19, 2017 INSTRUCTIONS MEDICATIONS ADMINISTERED No Known Medications MEDICAL (GENERAL) HISTORY Type Description Date Hospitalization History childbirth only
--- OUTSIDE RECORDS SUMMARY | 2018-08-25 17:55 | XMS REPORT ---
Author Author ABIDA TURK Organization [facility] Address [address] [place] [address] Care Team Providers Care Investment Consultant Name Role Phone ABIDA TURK Unavailable PROBLEMS Type Condition ICD9-CM Code PBA02-TF Code Onset Dates Condition Status SNOMED Code Problem Abnormal mammogram R92.8 Active 879341512 Problem Acquired hypothyroidism E03.9 Active 917687306 Problem Other obesity due to excess calories E66.09 Active 11666836037411 Problem Breast asymmetry N64.89 Active 080122856 Problem Body mass index (BMI) of 40.0-44.9 in adult Z68.41 Active 009560483 ALLERGIES No Information ENCOUNTERS Encounter Location Date Diagnosis [place] [address] [address] July, [place] [address] [address] July, Abnormal mammogram R92.8 [place] [address] [address] Jun, Dependent edema R60.9 and Acquired hypothyroidism E03.9 [place] [address] [place] [id number] [place] [address] May, Elevated TSH R94.6 [facility] [id number] [place] [address] May, Elevated TSH R94.6 [place] [address] [address] Apr, [place] [address] [address] Mar, Elevated TSH R94.6 [place] [address], [place] [address] Mar, Elevated TSH R94.6 [place] [id number] [place] [address] Mar, Elevated TSH R94.6 [place] [id number] [place] [address] Jan, [place] [id number] [place] [address] Dec, Elevated TSH R94.6 [place] [id number] [place] [address] Dec, Breast asymmetry N64.89 [place] [id number] [place] [address] Dec, Breast asymmetry N64.89 [place] [id number] [place] [address] Dec, Other obesity due to excess calories E66.09 ; Body mass index (BMI) of 40.0-44.9 in adult Z68.41 ; Elevated TSH R94.6 and Screening for breast cancer Z12.31 [place] [address] [place] [address] Dec, [place] [address] [place] [address] July, Sprain of left ankle, unspecified ligament, subsequent encounter S93.402D [facility] [address] [place] [address] July, Sprain of left ankle, unspecified ligament, subsequent encounter S93.402D [facility] [address] [place] [address] July, Left ankle injury, initial encounter S99.912A IMMUNIZATIONS No Known Immunizations SOCIAL HISTORY Never Assessed REASON FOR VISIT Deferred Lab PLAN OF CARE VITAL SIGNS MEDICATIONS Unknown Medications RESULTS No Results PROCEDURES No Known procedures INSTRUCTIONS MEDICATIONS ADMINISTERED No Known Medications MEDICAL (GENERAL) HISTORY Type Description Date Hospitalization History childbirth only
--- OUTSIDE RECORDS SUMMARY | 2018-08-25 17:55 | XMS REPORT ---
Author Author ABIDA TURK Organization [facility] Address [address] [place] [address] Care Team Providers Care Occupational Therapist Assistants Name Role Phone ABIDA TURK Unavailable PROBLEMS Type Condition ICD9-CM Code RRY01-GO Code Onset Dates Condition Status SNOMED Code Problem Breast asymmetry N64.89 Active 163758511 Problem Body mass index (BMI) of 40.0-44.9 in adult Z68.41 Active 834642117 Problem Other obesity due to excess calories E66.09 Active 36210748582331 ALLERGIES No Known Allergies ENCOUNTERS Encounter Location Date Diagnosis [facility] [address] [address] Jun, [facility] [id number] [place] [address] May, Elevated TSH R94.6 [facility] [address] [address] May, Elevated TSH R94.6 [facility] [id number] [place] [address] Apr, [facility] [id number] [place] [address] Mar, Elevated TSH R94.6 [facility] [id number] [place] [address] Mar, Elevated TSH R94.6 [facility] [address] [address] Mar, Elevated TSH R94.6 [facility] [id number] [place] [address] Jan, [place] [id number] [place] [address] Dec, Elevated TSH R94.6 [place] [address] [address] Dec, Breast asymmetry N64.89 [place] [address] [address] Dec, Breast asymmetry N64.89 [place] [address] [address] Dec, Other obesity due to excess calories E66.09 ; Body mass index (BMI) of 40.0-44.9 in adult Z68.41 ; Elevated TSH R94.6 and Screening for breast cancer Z12.31 [place] [address] [place] [address] Dec, [place] [address] [place] [address] July, Sprain of left ankle, unspecified ligament, subsequent encounter S93.402D [facility] [address] [place] [address] July, Sprain of left ankle, unspecified ligament, subsequent encounter S93.402D [facility] [id number] [place] [address] July, Left ankle injury, initial encounter S99.912A IMMUNIZATIONS No Known Immunizations SOCIAL HISTORY Never Assessed REASON FOR VISIT [facility] Updated--ADaviedRN PLAN OF CARE VITAL SIGNS MEDICATIONS Unknown Medications RESULTS No Results PROCEDURES No Known procedures INSTRUCTIONS MEDICATIONS ADMINISTERED No Known Medications MEDICAL (GENERAL) HISTORY Type Description Date Hospitalization History childbirth only
--- OUTSIDE RECORDS SUMMARY | 2018-08-25 17:55 | XMS REPORT ---
Author Author ABIDA TURK Organization [facility] Address [address] [place] [address] Care Team Providers Care Locomotive Observer Name Role Phone ABIDA TURK Unavailable PROBLEMS Type Condition ICD9-CM Code GBB17-CM Code Onset Dates Condition Status SNOMED Code Problem Abnormal mammogram R92.8 Active 396336940 Problem Acquired hypothyroidism E03.9 Active 716414371 Problem Other obesity due to excess calories E66.09 Active 81145750395691 Problem Breast asymmetry N64.89 Active 339763973 Problem Body mass index (BMI) of 40.0-44.9 in adult Z68.41 Active 175716940 ALLERGIES No Known Allergies ENCOUNTERS Encounter Location Date Diagnosis [place] [id number] [place] [address] July, [place] [id number] [place] [address] July, Abnormal mammogram R92.8 [place] [id number] [place] [address] Jun, Dependent edema R60.9 and Acquired hypothyroidism E03.9 [place] [id number] [place] [address] May, Elevated TSH R94.6 [place] [id number] [place] [address] May, Elevated TSH R94.6 [place] [address] [address] Apr, [place] [id number] [place] [address] Mar, Elevated TSH R94.6 [place] [address], [place] [address] Mar, Elevated TSH R94.6 [place] [id number] [place] [address] Mar, Elevated TSH R94.6 [place] [id number] [place] [address] Jan, [place] [id number] [place] [address] Dec, Elevated TSH R94.6 [place] [id number] [place] [address] Dec, Breast asymmetry N64.89 [place] [id number] [place] [address] Dec, Breast asymmetry N64.89 [place] [id number] [place] [address] Dec, Other obesity due to excess calories E66.09 ; Body mass index (BMI) of 40.0-44.9 in adult Z68.41 ; Elevated TSH R94.6 and Screening for breast cancer Z12.31 [place] [address], [place] [address] Dec, [place] [address] [place] [address] July, Sprain of left ankle, unspecified ligament, subsequent encounter S93.402D [facility]ALK IN [facility] [address], [place] [address] July, Sprain of left ankle, unspecified ligament, subsequent encounter S93.402D [facility] WALK IN [facility] [address], [place] [address] July, Left ankle injury, initial encounter S99.912A IMMUNIZATIONS No Known Immunizations SOCIAL HISTORY Never Assessed REASON FOR VISIT Est [facility] -- bing taveras PLAN OF CARE Activity Details Follow Up 6 Months with Tonia mcgee thyroid Reason: VITAL SIGNS Height 65 in 2016-12-30 Weight 258.0 lbs 2016-12-30 Temperature 97.8 degrees Fahrenheit 2016-12-30 Heart Rate 80 bpm 2016-12-30 Respiratory Rate 18 2016-12-30 BMI 42.93 kg/m2 2016-12-30 MEDICATIONS Medication Instructions Dosage Frequency Start Date End Date Duration Status Willard 5-325 MG Orally every 6 hrs 1 tablet as needed 6h July, Not-Taking RESULTS Name Result Date Reference Range Mammogram, Bilateral Screening 2017-01-08 PROCEDURES No Known procedures INSTRUCTIONS MEDICATIONS ADMINISTERED No Known Medications MEDICAL (GENERAL) HISTORY Type Description Date Hospitalization History childbirth only
--- OUTSIDE RECORDS SUMMARY | 2018-08-25 17:55 | XMS REPORT ---
Author Author ABIDA TURK Organization [facility] Address [address] [place] [address] Care Team Providers Care Pyroglazer Name Role Phone ABIDA TURK Unavailable PROBLEMS Type Condition ICD9-CM Code BTF90-MJ Code Onset Dates Condition Status SNOMED Code Problem Abnormal mammogram R92.8 Active 378935095 Problem Breast asymmetry N64.89 Active 584020199 Problem Other obesity due to excess calories E66.09 Active 44867186841652 Problem Body mass index (BMI) of 40.0-44.9 in adult Z68.41 Active 436418987 ALLERGIES No Information ENCOUNTERS Encounter Location Date Diagnosis [facility] [id number] [place] [address] July, Abnormal mammogram R92.8 [facility] [id number] [place] [address] Jun, [facility] [id number] [place] [address] May, Elevated TSH R94.6 [facility] [id number] [place] [address] May, Elevated TSH R94.6 [facility] [id number] [place] [address] Apr, [facility] [id number] [place] [address] Mar, Elevated TSH R94.6 [facility] [id number] [place] [address] Mar, Elevated TSH R94.6 [facility] [id number] [place] [address] Mar, Elevated TSH R94.6 [place] [address] [place] [address] Jan, [place] [address] [place] [address] Dec, Elevated TSH R94.6 [place] [id number] [place] [address] Dec, Breast asymmetry N64.89 [place] [id number] [place] [address] Dec, Breast asymmetry N64.89 [place] [id number] [place] [address] Dec, Other obesity due to excess calories E66.09 ; Body mass index (BMI) of 40.0-44.9 in adult Z68.41 ; Elevated TSH R94.6 and Screening for breast cancer Z12.31 [place] [id number] [place] [address] Dec, [place] [id number] [place] [address] July, Sprain of left ankle, unspecified ligament, subsequent encounter S93.402D [facility] [address] [place] [address] July, Sprain of left ankle, unspecified ligament, subsequent encounter S93.402D [facility] [address], [place] [address] July, Left ankle injury, initial encounter S99.912A IMMUNIZATIONS No Known Immunizations SOCIAL HISTORY Never Assessed REASON FOR VISIT refill PLAN OF CARE VITAL SIGNS MEDICATIONS Medication Instructions Dosage Frequency Start Date End Date Duration Status Levothyroxine Sodium 50 mcg Orally Once a day 1 tablet on an empty stomach in the morning 24h Jan, 30 day(s) Active RESULTS No Results PROCEDURES No Known procedures INSTRUCTIONS MEDICATIONS ADMINISTERED No Known Medications MEDICAL (GENERAL) HISTORY Type Description Date Hospitalization History childbirth only
--- OUTSIDE RECORDS SUMMARY | 2018-08-25 17:55 | XMS REPORT ---
Author Author ABIDA TURK Organization [facility] Address [address] [place] [address] Care Team Providers Care Program Attendant Name Role Phone ABIDA TURK Unavailable PROBLEMS Type Condition ICD9-CM Code EWX10-GI Code Onset Dates Condition Status SNOMED Code Problem Abnormal mammogram R92.8 Active 760818264 Problem Acquired hypothyroidism E03.9 Active 772824799 Problem Other obesity due to excess calories E66.09 Active 94889324185255 Problem Breast asymmetry N64.89 Active 227937794 Problem Body mass index (BMI) of 40.0-44.9 in adult Z68.41 Active 220264650 ALLERGIES No Information ENCOUNTERS Encounter Location Date Diagnosis [place] [address] [address] July, [place] [address] [address] July, Abnormal mammogram R92.8 [place] [address] [address] Jun, Dependent edema R60.9 and Acquired hypothyroidism E03.9 [place] [address] [place] [id number] [place] [address] May, Elevated TSH R94.6 [facility] [id number] [place] [address] May, Elevated TSH R94.6 [place] [address] [address] Apr, [place] [address] [address] Mar, Elevated TSH R94.6 [place] [address], [place] [address] Mar, Elevated TSH R94.6 [place] [address] [id number] [place] [address] Mar, Elevated TSH R94.6 [place] [address] [place] [id number] [place] [address] Jan, [place] [address] [place] [id number] [place] [address] Dec, Elevated TSH R94.6 [place] [address] [place] [id number] [place] [address] Dec, Breast asymmetry N64.89 [place] [address] [address] [place] [address] Dec, Breast asymmetry N64.89 [place] [address] [place] [address] [place] [address] Dec, Other obesity due to excess calories E66.09 ; Body mass index (BMI) of 40.0-44.9 in adult Z68.41 ; Elevated TSH R94.6 and Screening for breast cancer Z12.31 [place] [address] [place] [address] Dec, [place] [address] [place] [address] [id number] [place] [address] July, Sprain of left ankle, unspecified ligament, subsequent encounter S93.402D [facility] [address] [place] [address] July, Sprain of left ankle, unspecified ligament, subsequent encounter S93.402D [facility] [address] [place] [address] July, Left ankle injury, initial encounter S99.912A IMMUNIZATIONS No Known Immunizations SOCIAL HISTORY Never Assessed REASON FOR VISIT Lab PLAN OF CARE VITAL SIGNS MEDICATIONS Unknown Medications RESULTS No Results PROCEDURES Procedure Date Ordered Result Body Site ASSAY THYROID STIM HORMONE May 28, 2017 VENIPUNCT, ROUTINE* May 28, 2017 INSTRUCTIONS MEDICATIONS ADMINISTERED No Known Medications MEDICAL (GENERAL) HISTORY Type Description Date Hospitalization History childbirth only
--- NOTE | 2018-08-25 18:03 | NUR ---
TO ROOM NO CHANGE
[2018-08-25 18:16] VITALS: BP 138/87
== END 2018-08-25 18:16 | disposition home or self-care (01) ==
LOC: EDUNIT# 16:54 → ER 16:56
DX: R07.89 Other chest pain (principal); E03.9 Hypothyroidism, unspecified; F17.210 Nicotine dependence, cigarettes, uncomplicated
CPT/HCPCS: 36415; 71045; 80053; 83690; 83735; 83874; 83880; 84484; 85025; 85610; 85730; 93005

== ENCOUNTER 2019-03-15 05:31 | Outpatient (CLI) | payer BC ==
[~2019-03-15] VITALS: Ht 165 cm; Wt 106.8 kg
[~2019-03-15 05:31] MED LIST: LEVO75TA6
== END 2019-03-15 13:10 | disposition home or self-care (01) ==
LOC: PREOP 05:31
PROVIDERS: ATTEND Surgery
DX: Z01.818 Encounter for other preprocedural examination (principal)

== ENCOUNTER → 2019-05-06 | Outpatient (CLI) | payer BC ==
--- NOTE | 2019-05-06 09:43 | Diagnostic Imaging Report ---
Bilateral diagnostic mammogram. This study was compared to the prior exams of 08/19/2017 and 01/08/2017. At this time there are no current complaints. The current study was also evaluated with a Computer Aided Detection (CAD) system. FINDINGS: The fibroglandular tissue in both breasts is heterogeneously dense. This does limit the sensitivity of this exam. Overall, there does not appear to have been any significant change when compared to the prior study. No primary or secondary sign of malignancy is noted. IMPRESSION: There is no radiographic evidence for malignancy. ACR BI-RADS Category 1: Negative. Result letter will be mailed to the patient. Note: At least 10% of breast cancer is not imaged by mammography. Dictated by: Dictated on workstation # [id number]
== END ==
LOC: RAD 07:52
PROVIDERS: ATTEND Family Medicine
DX: Z12.31 Encounter for screening mammogram for malignant neoplasm of breast (principal)
CPT/HCPCS: 77067

== ENCOUNTER 2020-04-13 05:31 | Outpatient (RCR) | payer BC ==
[~2020-04-13] VITALS: Ht 165.1 cm; Wt 110.8 kg
[~2020-04-13 05:31] MED LIST changes: +LEVO100C4 PO
== END 2020-04-13 10:06 | disposition home or self-care (01) ==
LOC: PREOP 05:31
PROVIDERS: ATTEND Surgery
DX: Z01.818 Encounter for other preprocedural examination (principal); Z86.010 Personal history of colon polyps; Z20.822 Contact with and (suspected) exposure to COVID-19
CPT/HCPCS: 87635

== ENCOUNTER 2020-04-17 07:50 | Day surgery (SDC) | payer BC ==
[~2020-04-17] VITALS: Ht 165 cm; Wt 111.0 kg
[2020-04-17] MEDS ORDERED: GLYCOPYRROLATE 0.2 MG/ML (ROBINUL) 2 ML VIAL IJ ONE (07:51)
[2020-04-17] MEDS ORDERED: LACTATED RINGERS 1,000 ML IV ONE (07:53)
[2020-04-17] MEDS ORDERED: LACTATED RINGERS 1,000 ML IV STA (07:58)
[2020-04-17 08:00] VITALS: BP 123/86
--- NOTE | 2020-04-17 08:22 | Progress Note-Pre Operative ---
Pre-Operative Progress Note H&P Reviewed The H&P was reviewed, patient examined and no changes noted. Date Seen by Provider: Apr 17, 2020 Time Seen by Provider: 08:22 Date H&P Reviewed: Apr 17, 2020 Time H&P Reviewed: 08:22 Pre-Operative Diagnosis: family history colon cancer, history of polyps JUDY MOLINA DO Apr 17, 2020 08:22
[2020-04-17] MEDS ORDERED: PROPOFOL INJECTION 50 ML IV ONE (09:05)
[2020-04-17] MEDS ORDERED: MIDAZOLAM 2 MG/2 ML (VERSED) VIAL ONE (09:05)
[2020-04-17] MEDS ORDERED: LIDOCAINE PF 2% 5 ML (XYLOCAINE) VIAL ONE (10:14)
[2020-04-17 10:35] VITALS: BP 131/79
[2020-04-17 10:40] VITALS: BP 123/72
[2020-04-17 10:45] VITALS: BP 123/72
--- NOTE | 2020-04-17 10:45 | Progress Note-Post Operative ---
Post-Operative Progess Note Surgeon (s)/Filter Tank Tender Helper (s) Surgeon JUDY MOLINA DO Filter Tank Tender Helper: na Pre-Operative Diagnosis family history colon cancer, history of polyps Post-Operative Diagnosis Polyps Procedure & Operative Findings Date of Procedure 04/17/20 Procedure Performed/Findings colonoscopy Anesthesia Type per POKE IN Estimated Blood Loss Estimated blood loss (mL): none Specimens/Packing Specimens Removed transverse polyps x2 JUDY MOLINA DO Apr 17, 2020 10:45
--- NOTE | 2020-04-17 10:46 | Discharge Inst-Simple/Standard ---
Discharge Inst-Standard Patient Instructions/Follow Up Plan of Care/Instructions/FU: 2 weeks Gwyn Activity as Tolerated: Yes Discharge Diet: Regular Diet JUDY MOLINA DO Apr 17, 2020 10:46
[2020-04-17 11:10] VITALS: BP 132/96
--- NOTE | 2020-04-17 17:54 | OPERATIVE REPORT ---
DATE OF SERVICE: 04/17/2020 PREOPERATIVE DIAGNOSIS: History of polyps. POSTOPERATIVE DIAGNOSIS: Colon polyps, transverse colon x2. PROCEDURE PERFORMED: Colonoscopy with hot biopsy polypectomy x2. SURGEON: Judy Pascal DO ANESTHESIA: Per FRAME TABLE OPERATOR. ESTIMATED BLOOD LOSS: None. COMPLICATIONS: None. INDICATIONS FOR PROCEDURE: The patient is a 49-year-old female needing screening colonoscopy. She understands risks and benefits of the procedure and wished to proceed with the procedure. Consent was signed in the chart. DESCRIPTION OF PROCEDURE: The patient was taken to the endoscopy suite and placed in a left lateral recumbent position. Timeout was performed. Digital rectal exam was performed. No palpable polyps, masses or ulcerations. Scope was inserted in the rectum, advanced all the way to cecum with minimal difficulty. Prep was adequate. Scope was slowly retracted back. No polyps, masses or ulcerations within the cecum and ascending colon. In the transverse colon, two small polyps were present, which hot biopsy polypectomy was performed on these. Scope was then continuously retracted back. There were no polyps, masses or ulcerations within the remainder of the transverse, descending and sigmoid colon. Once in the rectum, scope was retroflexed noting no other pathology. Scope was returned to its normal position, slowly withdrawn until completely removed. The patient tolerated the procedure well without any complications. She was taken to recovery room in a stable condition. RECOMMENDATIONS: The patient will need repeat colonoscopy in five years, followup in the office in 2 weeks to discuss pathology results. Further recommendations pending biopsy results. Job ID: [id number] DocumentID: [id number] Dictated Date: 04/17/2020 10:49:51 Turntable Worker Date: 04/17/2020 17:53:20 Dictated By: JUDY PASCAL DO
--- NOTE | 2020-04-18 09:56 | Anesthesia-General Post-Op ---
MAC Significant Intra-Op Events Notes addendum 04-17-20 at 1400 Patient Condition Mental Status/LOC: Same as Preop Cardiovascular: Satisfactory Nausea/Vomiting: Absent Respiratory: Satisfactory Pain: Controlled Complications: Absent Post Op Complications Complications None Follow Up Care/Instructions Patient Instructions None needed. Anesthesiology Discharge Order Discharge Order Patient is doing well, no complaints, stable vital signs, no apparent adverse anesthesia problems. No complications reported per nursing. DIONNE GARCIA CRNA Apr 18, 2020 09:56
== END 2020-04-17 11:15 | disposition home or self-care (01) ==
LOC: ENDO 07:50
PROVIDERS: ATTEND Surgery
DX: Z12.11 Encounter for screening for malignant neoplasm of colon (principal); D12.3 Benign neoplasm of transverse colon; E03.9 Hypothyroidism, unspecified; F17.210 Nicotine dependence, cigarettes, uncomplicated; Z79.899 Other long term (current) drug therapy; Z86.010 Personal history of colon polyps; Z80.0 Family history of malignant neoplasm of digestive organs
CPT/HCPCS: 88305